=== PATIENT | female | born 1960 | race Caucasian/White ===

== ENCOUNTER → 2024-12-25 | Emergency (ER) | payer BC, OTHER ==
[~2024-12-25] VITALS: Ht 154.9 cm; Wt 51.3 kg
[2024-12-25 12:23] VITALS: BP 148/87; PULSE 78; RESP 16; TEMP 98; O2SAT 97
== END | disposition left against medical advice (07) ==
LOC: ER 12:09
DX: K13.79 Other lesions of oral mucosa (principal); Z53.21 Procedure and treatment not carried out due to patient leaving prior to being seen by health care provider